=== PATIENT | female | born 1990 | race Hispanic/Latino ===

== ENCOUNTER 2018-03-14 11:10 | Inpatient (IN) | payer MEDICAID, SELFPAY ==
[2018-03-14] MEDS ORDERED: Acetaminophen 500 MG TAB PO PRN (11:57)
[2018-03-14] MEDS ORDERED: Ibuprofen 800 MG TAB PO PRN (11:57)
[2018-03-14] MEDS ORDERED: Carboprost 250 MCG/ML AMP IM PRN (11:57)
[2018-03-14] MEDS ORDERED: NS / Oxytocin 40 units/1000ml 1,000 ML IV PRN (11:57)
[2018-03-14] MEDS ORDERED: Sodium Chloride 0.9% 100 ML ONE (11:57)
[2018-03-14] MEDS ORDERED: NS w/ Oxytocin 10 units 500 ML ONE (11:57)
[2018-03-14] MEDS ORDERED: Ondansetron HCl/PF 4 MG/2 ML Vial IVP PRN ×2 (11:57→21:01)
[2018-03-14] MEDS ORDERED: Penicillin G Potassium 5 MILL.UNITS VIAL ONE (11:57)
[2018-03-14] MEDS ORDERED: Promethazine HCl 25 MG/ML VIAL IM PRN ×2 (11:57→21:01)
[2018-03-14] MEDS ORDERED: Misoprostol 200 MCG TAB PR PRN (11:57)
[2018-03-14] MEDS ORDERED: Butorphanol Tartrate 1 MG/ML VIAL SLOW IVP PRN (11:57)
[2018-03-14] MEDS ORDERED: Lidocaine 1% (PF) 30 ML VIAL SC PRN (11:57)
[2018-03-14] MEDS ORDERED: Labetalol HCl 100 MG/20 ML VIAL SLOW IVP PRN (12:00)
[2018-03-14] MEDS ORDERED: NS w/ Oxytocin 10 units 500 ML IV SCH (12:00)
[2018-03-14] MEDS ORDERED: Penicillin G Potassium 5 MILL.UNITS in Sodium Chloride 0.9% 100 ML IVPB SCH (12:00)
--- NOTE | 2018-03-14 12:03 | PDOC.LDHP ---
Labor and Delivery H&P Chief complaint: scheduled induction HPI: 27 y/o LAF A1 at 37-38 weeks. Noted to have hypertension at routine obv today--146/100 and 150/98. UP was 1+. Has some subjective swelling face. no headaches. Active fetus. Current gestational age (weeks): 37 Due date: 04/03/18 Dating criteria: last menstrual period Grav: 3 Para: 1 Current complications: none Abnormal US findings: No Current medications: pre- vitamins Previous surgical history: none Allergies/Adverse Reactions: Allergies Allergy/AdvReac Type Severity Reaction Status Date / Time Sulfa (Sulfonamide Allergy Unknown Rash Verified 03/26/17 07:36 Antibiotics) Social history: none - Physical Exam Abnormal vital signs: 155/94 General: resting Heart: RRR Lungs: CTAB Abdomen: gravid Extremeties: pitting edema FHT: category 1 - Vaginal Exam cm dilated: 3 Effacement: 50% Station: -1 - OB Labs Blood type: O RH: positive Antibody Screen: negative HIV: negative RPR: negative HEPSAg: negative 1 hour GCT: negative GBS: positive Urine drug screen: not done Rubella: immune - Assessment L&D Assessment: medically indicated induction (A1 at 37-38 weeks with mild gestational hypertension..Favorable cervix. Labor induction. GBS prophylaxis.PIH lab screen. Magnesium prophylaxis if needed--symptoms/abnormal labs/severe blood pressure criteria.) - Plan Plan: admit to L&D, GBS antibiotic prophylaxis
[2018-03-14 12:12] LABS: Hemoglobin 13.8 g/dL (12.0-16.0); Mean Corpuscular HGB CONC 35.9 g/dL (32.0-36.0); Mean Corpuscular Hemoglobin 31.5 pg (27.0-31.0); Mean Corpuscular Volume 87.7 fL (78.0-98.0); Mean Platelet Volume 9.7 fL (7.4-10.4); Platelet Count 189 thou/uL (130-400); RBC Distribution Width 13.1 % (11.5-14.5); Red Blood Cell (RBC) Count 4.39 mill/uL (4.20-5.40)
[2018-03-14 12:30] VITALS: BMI 40.2
[2018-03-14 12:33] LABS: ALT (SGPT) 19 U/L (8-55); AST (SGOT) 23 U/L (5-34); Albumin 3.6 g/dL (3.5-5.0); Alkaline Phosphatase 136 U/L (40-150); Anion Gap 14 mmol/L (10-20); BUN (Urea Nitrogen) 7 mg/dL (7.0-18.7); Bilirubin, Total 0.5 mg/dL (0.2-1.2); Calc. Creatinine Clearance 285 mL/min (70-130); Calcium 9.1 mg/dL (7.8-10.44); Carbon Dioxide 17 mmol/L (22-29); Chloride 109 mmol/L (98-107); Estimated GFR-MDRD Greater than 90; Globulin 2.9 g/dL (2.4-3.5); Glucose 75 mg/dL (70-105); Potassium 4.2 mmol/L (3.5-5.1); Protein, Total 6.5 g/dL (6.0-8.3); Sodium 136 mmol/L (136-145)
[2018-03-14 12:55] LABS: Hep B Surf Ag Non-Reactive S/CO (NonReactive)
[2018-03-14 12:58] LABS: Syphilis Antibody Nonreactive (Nonreactive); Syphilis Antibody Index 0.03 S/CO (<1.00 Non-Reactive)
[2018-03-14] MEDS ORDERED: Bupivacaine 0.5% 20 ML, fentaNYL Citrate/PF 400 MCG in Sodium Chloride 0.9% 72 ML EPIDURAL SCH (13:00)
[2018-03-14] MEDS ORDERED: DISCONTINUE ALL PREVIOUS NARCOTICS FS SCH (13:00)
[2018-03-14] MEDS ORDERED: Lidocaine HCl/Epinephrine 5 ML AMPUL IJ ONE (15:45)
[2018-03-14] MEDS: Penicillin G 2.5 MILL.units 2.5 MILL.UNITS in Premix Bag 1 BAG IVPB SCH ×2 (16:48→22:16)
--- NOTE | 2018-03-14 17:20 | PDOC.EVN ---
Event Note - Event Note Event Note: Patient seen at bedside from [id number]. I placed FSE...some late appearing decels noted but moderate variability noted. ANJELICA in use. I checked cervix: / . FSE placed. We will place on side. No IUPC in use...cat 2 strip...continue to monitor. If continues...we will give 500ml fluid bolus (limit boluses due to possible PIH). Last delivery was 11 mos ago. I explained all this to the patient and I annotated on the strip
[2018-03-14] MEDS: Lactated Ringer's 1,000 ML IV SCH ×2 (18:10→22:16)
--- NOTE | 2018-03-14 20:16 | PDOC.OPDEL ---
OB Operative/Delivery Note Delivery Dr/Surgeon: Rod Reid Assist: none Pre-Delivery Diagnosis: medically indicated induction (For PIH (no indications for Mag Sulfate)) Procedure/Post Delivery Dx: spontaneous vaginal delivery Weeks gestation: 37 Anesthesia: epidural - Findings A - 1 min: 9 - 5 min: 9 - Additional Findings/Plan Placenta delivered: spontaneous (Valles at 2007, Baby delievered at 2003) Repaired Obstetrical Laceration: 1st degree (Repaired with 2-0 Vicryl for hemostatic purposes) Estimated blood loss: EBL less than 100 (QBL pending) Compilations/Other Findings: No NC 3 Vessel Cord Delayed Cord clamping for 30 sec as child was on maternal abdomen Baby vigorous All counts correct Single figure of 8 stitch placed for first degree lac repair Post delivery plan: routine recovery
[2018-03-14] MEDS ORDERED: Preparation H Ointment 28 GM TUBE PR PRN (20:17)
[2018-03-14] MEDS ORDERED: Adacel (T-DAP) 0.5 ML VIAL IM ONE (20:17)
[2018-03-14] MEDS ORDERED: Measles/Mumps/Rubella 10 MCG/0.5 ML VIAL SC ONE (20:17)
[2018-03-14] MEDS ORDERED: Varicella virus, LIVE 0.5 ML VIAL SC ONE (20:17)
[2018-03-14] MEDS ORDERED: Acetaminophen/Codeine 30-300mg Tablet PO PRN ×2 (20:17)
[2018-03-14] MEDS ORDERED: Lanolin Ointment 7 GM TUBE TOP PRN (20:17)
[2018-03-14] MEDS ORDERED: diphenhydrAMINE 25 MG CAP PO PRN (20:17)
[2018-03-14] MEDS ORDERED: Benzocaine/Menthol 20-0.5% 60 ML CAN TOP PRN (20:17)
[2018-03-14] MEDS ORDERED: NS / Oxytocin 40 units/1000ml 1,000 ML IV SCH (20:30)
[2018-03-14] MEDS ORDERED: ePHEDrine/0.9% NaCl/PF SYRINGE 50 mg/10 ml SLOW IVP PRN (21:01)
[2018-03-14] MEDS ORDERED: Naloxone HCl 0.4 mg/ml Vial IVP PRN ×2 (21:01)
[2018-03-14] MEDS ORDERED: diphenhydrAMINE 50 MG/ML VIAL IVP PRN (21:01)
[2018-03-14] MEDS ORDERED: Lactated Ringer's 500 ML IV PRN (21:01)
[2018-03-14] MEDS ORDERED: Hydrocerin (Eucerin) Cream 120 gm Jar TOP PRN (21:01)
[2018-03-14] MEDS ORDERED: Acetaminophen 325 MG TAB PO PRN (21:01)
[2018-03-14] MEDS ORDERED: Communication Order-Pharmacy FS SCH (21:15)
[2018-03-14] MEDS ORDERED: fentaNYL Citrate/PF 400 MCG, Bupivacaine 0.5% 20 ML in Sodium Chloride 0.9% 72 ML EPIDURAL SCH (21:15)
[2018-03-15] MEDS: Ibuprofen 800 MG TAB PO SCH ×4 (00:10→23:58)
[2018-03-15] MEDS: Docusate Calcium (SURFAK) 240 MG CAP PO SCH ×3 (00:10→23:58)
[2018-03-15 05:39] LABS: Mean Corpuscular HGB CONC 35.7 g/dL (32.0-36.0); Mean Corpuscular Hemoglobin 31.7 pg (27.0-31.0); Mean Corpuscular Volume 88.7 fL (78.0-98.0); Mean Platelet Volume 9.6 fL (7.4-10.4); Platelet Count 160 thou/uL (130-400); RBC Distribution Width 13.2 % (11.5-14.5); White Blood Cell (WBC) Count 9.7 thou/uL (4.8-10.8)
--- NOTE | 2018-03-15 06:39 | PDOC.PP ---
Post Progress Note Post Day #: 1 Subjective: Doing well PO intake tolerated: yes Flatus: yes Ambulation: yes Vital Signs (12 hours) Temp Pulse Resp BP BP 03/15/18 04:00 97.7 F 75 20 122/73 03/15/18 01:00 98.0 F 81 20 134/79 03/15/18 00:05 98.9 F 86 20 127/67 03/14/18 23:45 97.9 F 92 18 03/14/18 23:05 97.9 F 92 18 141/84 H Weight Weight 268 lb - Physical Examination General: NAD Cardiovascular: no m/r/g Respiratory: clear to auscultation bilaterally Abdominal: + bowel sounds, no distention, appropriately TTP Extremities: negative homans (B) Neurological: no gross focal deficits Psychiatric: A&Ox3, normal affect Result Diagrams: 03/15/18 05:10 03/14/18 11:48 Additional Labs: Post Labs Blood Type O POSITIVE 03/14/18 11:48 Hep Bs Antigen Non-Reactive S/CO (NonReactive) 03/14/18 11:48 - Assessment/Plan A/P: PPD 1 s/p at 2000 yesterday, HX PIH. Hct 33.7 on PPD1. Initally BPs were 150/90s...but last few were 120- 130s/70s. We will watch BPs today. No indication for medication initation at this time. No SXS PIH. Follow BPs and possible DSCH tomorrow AM as ahe requested home tomorrow if BPs remain stable.
[2018-03-15] MEDS: Ferrous Sulfate 325 MG TAB PO SCH ×2 (08:53→17:41)
[2018-03-15] MEDS: Prenatal Vitamin 1 TAB PO SCH (08:57)
[2018-03-15] MEDS ORDERED: Bupivacaine 0.25% HCL 30 ML VIAL ONE (12:33)
[2018-03-16] MEDS: Ibuprofen 800 MG TAB PO SCH ×2 (00:45→09:04)
--- NOTE | 2018-03-16 07:57 | DIS ---
DATE OF ADMISSION: 03/14/2018 DATE OF DISCHARGE: 03/16/2018 ADMITTING DIAGNOSIS: PIH (-induced hypertension) at 37 weeks. DISCHARGE DIAGNOSIS: PIH (-induced hypertension) at 37 weeks. PROCEDURE: Term spontaneous vaginal delivery. HOSPITAL COURSE: The patient is a 27-year-old G3, P1 female at 37 weeks, who was admitted for induct ion of labor due to gestational hypertension. The patient underwent a successful labor course and garces d a term spontaneous vaginal delivery. Her course has been uncomplicated. Blood pressure today 128/75, temperature 97.9, pulse of 82, respiratory rate of 16. Her blood pressure max over th e last 24 hours is 142/87. The patient reports she is tolerating p.o., voiding on her own, having de creased lochia and good pain control. On exam, she is in no acute distress. She is alert and orient ed and cooperative and pleasant to interact with. Fundus is firm. Extremities are nontender and non edematous. The patient will be discharged to home. She has instructions to follow up with her primary OB in 6 w eeks. The patient is to follow up in 1 week for blood pressure check and 6 weeks for routine postpar mariel visit. She is to seek medical attention sooner if she experiences fever, increasing pain or blee ding. Patient will be discharged home on ibuprofen.
[2018-03-16 08:57] VITALS: BP 112/59; TEMP 98.4
[2018-03-16] MEDS: Docusate Calcium (SURFAK) 240 MG CAP PO SCH (09:04)
[2018-03-16] MEDS: Prenatal Vitamin 1 TAB PO SCH (09:04)
[2018-03-16] MEDS: Ferrous Sulfate 325 MG TAB PO SCH (09:05)
== END 2018-03-16 14:00 | disposition home or self-care (01) | DRG 775 ==
LOC: L&D-LIB 11:10 → L&D 11:53 → 3SW 23:03
PROVIDERS: ADMIT Obstetrics & Gynecology; ATTEND Obstetrics & Gynecology
PROC: 10E0XZZ Delivery of Products of Conception, External Approach (ICD-10-PCS; principal; 2018-03-14)
PROC: 0HQ9XZZ Repair Perineum Skin, External Approach (ICD-10-PCS; 2018-03-14)
PROC: 3E033VJ Introduction of Other Hormone into Peripheral Vein, Percutaneous Approach (ICD-10-PCS; 2018-03-14)
DX: O13.4 Gestational [pregnancy-induced] hypertension without significant proteinuria, complicating childbirth (principal); O70.0 First degree perineal laceration during delivery; O76 Abnormality in fetal heart rate and rhythm complicating labor and delivery; Z3A.37 37 weeks gestation of pregnancy; Z37.0 Single live birth
CPT/HCPCS: 36415; 51702; 80053; 85027; 86780; 86850; 86900; 86901; 87340; 90707; 90715; 90716; A4216; J2001; J2540; J3010; J3490; J7050; S0020